=== PATIENT | male | born 1980 | race Caucasian/White ===

== ENCOUNTER 2016-10-08 02:52 | Emergency (ER) | payer MEDICAID ==
[~2016-10-08] VITALS: Ht 198.1 cm; Wt 83.9 kg
[2016-10-08] MEDS ORDERED: CLINDAMYCIN 900MG IV 50 ML IV ONE (03:30)
[2016-10-08] MEDS ORDERED: KETOROLAC TROMETH 30 MG/ML 1ML VIAL IV ONE (03:30)
[2016-10-08] MEDS ORDERED: SODIUM CHLORIDE 0.9% 1,000 ML IV ONE (03:30)
[2016-10-08 03:38] LABS: Basophils # (auto) 0 uL; Basophils % (auto) 0.3 % (0.0-2.0); Eosinophils # (auto) 0.1 uL; Eosinophils % (auto) 1.5 % (0.0-7.0); Hematocrit 46.3 % (41.0-53.0); Hemoglobin 15.7 g/dL (13.5-17.5); Lymphocytes # (auto) 2.1 uL; Lymphocytes % (auto) 25.2 % (10.0-50.0); Mean Corpuscular Hemoglobin 29.5 pg (28.0-32.0); Mean Corpuscular Hgb Conc. 33.8 g/dL (32.0-36.0); Mean Corpuscular Volume 87.3 fL (80.0-100.0); Mean Platelet Volume 7.7 fL (7.4-10.4); Monocytes # (auto) 0.9 uL; Monocytes % (auto) 10.7 % (0.0-12.0); Neutrophils # (auto) 5.2 uL; Neutrophils % (auto) 62.3 % (37.0-80.0); Platelet Count (auto) 293 10^3/uL (140-450); White Blood Cell 8.4 10^3/uL (4.4-10.8)
[2016-10-08 03:57] LABS: Albumin 3.7 g/dL (3.4-5.0); BUN/Creatinine Ratio 15.7; Calcium 8.6 mg/dL (8.5-10.1); Potassium 4.1 mmol/L (3.5-5.1)
[2016-10-08 04:00] LABS: Bilirubin, Total 0.2 mg/dL (0.2-1.0); Total Protein 7.7 g/dL (6.4-8.2)
[2016-10-08 04:11] LABS: Magnesium 2.2 mg/dL (1.6-2.6); Uric Acid 5.3 mg/dL (3.5-7.2)
[2016-10-08 04:12] LABS: INR 1.05 (0.9-1.15); Partial Thromboplastin Time 28.7 sec (22.64-33.71); Prothrombin Time 10.8 sec (9.37-12.3)
[2016-10-08 05:14] VITALS: BP 95/56
== END 2016-10-08 05:25 | disposition home or self-care (01) ==
LOC: ER 02:56
DX: L03.116 Cellulitis of left lower limb (principal); F17.210 Nicotine dependence, cigarettes, uncomplicated
CPT/HCPCS: 36415; 73610; 80053; 83735; 84550; 85025; 85610; 85730; 86141; 87040; 93005; 94761; 96365; 96375; 99285; J1885; J3490; J7030